=== PATIENT | female | born 1955 | race Caucasian/White ===

== ENCOUNTER 2017-10-26 06:18 | Inpatient (IN) ==
[2017-10-26] MEDS ORDERED: CeFAZolin Syr 2,000MG/20 ML 2,000 MG/20 ML SYRINGE IVPB ONE ×2 (06:37→12:30)
[2017-10-26] MEDS ORDERED: Lidocaine -MPF 1% 2 ML VIAL ONE ×2 (07:06→07:12)
--- NOTE | 2017-10-26 07:09 | Anesthesia Evaluation PreOp ---
Date of Encounter: 10/26/17 Time of Encounter: 07:07 - Past History Planned Operation: Robotic Sacrocolpopexy, Hysterectomy Cardiac History: Denies any Significant Hx Pulmonary History: Denies Any Significant HX MANAGER PAID History: Denies Any Significant HX Other Medical History: GERD, Other (depression) Anesthesia History: No Prior Anesthetic Complications, Past Anesthesia Alcohol Use: occasionally Drug use: none Medications and Allergies Calcium Carbonate/Vitamin D3 [Calcium 500 + Vit D 200 Caplet] 1 tab PO DAILY [History] Docusate Sodium [Dok] 100 mg PO DAILY PRN 10/26/17 [History] Estradiol [Estrace] 1 appl VG 2XW 10/26/17 [History] Mirabegron [Myrbetriq] 50 mg PO DAILY 10/26/17 [History] Mv-Mn/FA/Vit K/Lycop/Lut/Coq10 [Daily Multivitamin Capsule] 1 tab PO DAILY 10/26 [History] Ospemifene [Osphena] 60 mg PO DAILY 10/26/17 [History] Vilazodone HCl [Viibryd] 20 mg PO DAILY 10/26/17 [History] Vitamin E (Dl,Tocopheryl Acet) [Vitamin E] 400 unit PO DAILY 10/26/17 [History] valACYclovir [Valtrex] 500 mg PO DAILY 10/26/17 [History] 3 Allergy/AdvReac Type Severity Reaction Status Date / Time No Known Allergies Allergy Verified 10/26/17 06:42 - Meds/Allergy Pre-op Review Medications Reviewed: Yes Allergies Reviewed: Yes Beta Blockers on Current Med List: No Anesthesia Results - Labs Laboratory Tests 10/19/17 10/19/17 10:17 10:17 WBC 6.7 Hgb 12.6 Hct 39.6 Plt Count 242 Creatinine 0.85 Anesthesia Exam O2 Sat Height 1.57 m Height 1.57 m Height 1.57 m Weight 63.049 kg Weight 63.049 kg Weight 63.049 kg O2 Sat by Pulse Oximetry 98 Vital Signs Temp Pulse Resp BP Pulse Ox 97.5 F L 70 18 135/73 98 10/26/17 06:37 10/26/17 06:37 10/26/17 06:37 10/26/17 06:37 10/26/17 06:37 Height: 5'2'' Weight: 139 lbs NPO (# of Hours): 8 Pain Scale: 0 Pain Scale Used: Numeric (1 - 10) - HEENT Pupil (Motor): EOMI Mallampati: II Teeth: Normal Oral Opening: Greater than 3 - MANAGER PAID LOC: Oriented MANAGER PAID Motor: Normal RUE, Normal LUE, Normal RLE, Normal LLE, Normal Face MANAGER PAID Sensory: Normal: RUE, LUE, RLE, LLE, Face - Cardiac Rhythm: Regular Murmur: None - Pulmonary Breath Sounds: bilateral Clear Respiratory Effort: Symmetrical Anesthesia Assess/Plan ASA Score: 2 Modified [place] Scale for Level of Consciousness: Cooperative, oriented, and tranquil Anesthetic Plan: General Monitoring Plan: Standard Monitors Recovery Plan: PACU
[2017-10-26] MEDS ORDERED: Bupivacaine/EPI 1:200k 0.25%PF 10 ML VIAL INFILT ONE (07:14)
[2017-10-26] MEDS: Ringers Solution, Lactated 1,000 ML IVC SCH ×2 (07:30→17:30)
[2017-10-26] MEDS ORDERED: Albumin Human 5% 25.0 GM/500 ML VIAL ONE ×2 (07:32→13:20)
--- NOTE | 2017-10-26 07:34 | History & Physical Report ---
Date of Encounter: 10/26/17 Time of Encounter: 07:34 24 Hour HP Update - Instructions Instructions: If the History and Physical is less than 30 days old and was completed prior to A.M. admission and or procedure and has NOT been updated on calendar day of procedure please complete this update prior to performing procedure. - Update Patient reports changes in Medical Condition: No Changes in examination, assessment, or condition: No Changes in Medication: No Preop tests/diagnostics Reviewed: Yes Surgery Remains Indicated: Yes Consent for Planned Operative Procedure(s) Verified: Yes - Pre-Operative Checklist Preoperative Checklist Indicated: Yes Prophylactic Antibiotic Ordered: Yes Home Medications Include Beta Kendrick: No Beta Kendrick Taken Today (Day of Surgery): No Beta Kendrick Taken Yesterday (Day Prior to Surgery): No Is VTE Prophylaxis Indicated?: Yes
[2017-10-26] MEDS ORDERED: Ondansetron 4 MG/2 ML VIAL ONE (07:37)
[2017-10-26] MEDS ORDERED: *HR* FentaNYL (PF) 100 MCG/2 ML VIAL ONE ×2 (07:37→13:11)
[2017-10-26] MEDS ORDERED: Neostigmine Methylsulfate 3 MG/3 ML SYRINGE ONE (07:37)
[2017-10-26] MEDS ORDERED: *HR* Midazolam HCl 2 MG/2 ML VIAL ONE (07:37)
[2017-10-26] MEDS ORDERED: *HR* Rocuronium Bromide 50 MG/5 ML VIAL ONE (07:37)
[2017-10-26] MEDS ORDERED: Dexamethasone 4 MG/ML VIAL ONE (07:37)
[2017-10-26] MEDS ORDERED: *HR* Propofol 200 MG/20 ML VIAL IVP ONE ×2 (07:39→15:18)
[2017-10-26] MEDS ORDERED: Lidocaine -MPF 2% 2 ML VIAL ONE (07:40)
[2017-10-26] MEDS ORDERED: EPHEDrine 50 MG/ML VIAL ONE (07:57)
[2017-10-26] MEDS ORDERED: Lacri-Lube 3.5 GM TUBE ONE (08:01)
[2017-10-26] MEDS ORDERED: *HR* PHENYLEPHRINE 1,000 MCG/10 ML SYRINGE IVP ONE (08:19)
[2017-10-26] MEDS ORDERED: *HR* Labetalol 100 MG/20 ML MDV IVP PRN (08:31)
[2017-10-26] MEDS ORDERED: *HR* Promethazine 25 MG/ML VIAL IVP PRN (08:31)
[2017-10-26] MEDS ORDERED: *HR* OxyCODONE Immed Rel 5 MG TABLET PO PRN (08:31)
[2017-10-26] MEDS ORDERED: ceFAZolin 2,000 MG in Water for inj. (sterile) 20 ML IVP ONE (12:11)
[2017-10-26] MEDS ORDERED: Bupivacaine-MPF 0.25% 10 ML VIAL ONE (13:41)
[2017-10-26] MEDS ORDERED: Lidocaine/EPI 1:100k 1% 50 ML VIAL INFILT ONE (14:40)
[2017-10-26] MEDS ORDERED: Naloxone 0.4 MG/ML INJ IVP PRN ×2 (15:52→15:53)
[2017-10-26] MEDS ORDERED: Ondansetron 4 MG/2 ML VIAL IVP PRN (15:53)
--- NOTE | 2017-10-26 15:58 | OB/GYN Procedure Note ---
Hysterectomy - Diagnosis Date of procedure: 10/26/17 Hysterectomy pre-op: symptomatic prolapse Post-op diagnosis: other (pelvic adhesions) - Procedure Hysterectomy procedure: total laparoscopic hyst., bilateral salpingo- oophorectomy, other (Lysis of adhesions, exploratory laparotomy sacrocolpopexy, rectocele repair, cystoscopy), robotic Surgeon: Dean Vizcarra Was there an assistant professor of forestry present: Yes Cannery Worker: Josseline Sánchez Anesthesia Type: General Estimated blood loss (cc): 300 Fluids: crystalloid Specimens: right ovary, uterus, left ovary, right fallopian tube, left fallopian tube Findings: adhesions b/w bowel, omentum and anterior abdominal wall, adhesions b/w right tube and ovar and right pelvic side wall, atrophic vagina with thin mucosa, normal uterus and tubes and ovaries bilaterally. Disposition: PACU
[2017-10-26] MEDS: MORPHINE SUL Oral CONC 10 MG/0.5 ML ORAL.SYG SL PRN ×2 (16:22→16:32)
--- NOTE | 2017-10-26 16:56 | Anesthesia Evaluation Post Op ---
Date of Encounter: 10/26/17 Time of Encounter: 16:55 - Vital Signs Vital Signs: Vital Signs/O2 Sat, Most Current Temp Pulse Resp BP Pulse Ox 97.0 F L 78 16 112/54 100 10/26/17 16:20 10/26/17 16:20 10/26/17 16:20 10/26/17 16:20 10/26/17 16:20 - Lungs Lungs: Clear Ascult./Percussion - Airway Airway: Non-obstructed - Cardiovascular Regular Rate - Mental Status Mental Status: Asleep with brisk response to light stimulation - Pain Pain Scale: 5 Pain Scale used: Numeric (1 - 10) - Nausea Vomiting Nausea Vomiting: Not Present - Hydration Hydration: Ice chips, Gusman catheter - Discharge PostOp Status: Transfer Patient to floor
[2017-10-26] MEDS: *HR* HYDROmorphone 2 MG/ML SYRINGE IVP PRN ×2 (19:15→22:50)
[2017-10-27] MEDS: *HR* HYDROmorphone 2 MG/ML SYRINGE IVP PRN ×3 (03:32→08:37)
[2017-10-27 04:37] LABS: Hematocrit 27.2 % (35.3-44.9); Hemoglobin 8.5 g/dL (11.5-15.4); Immature Granulocytes % 0.3 % (0-4); Lymphocytes # 0.9 K/mcL (0.6-4.6); Lymphocytes % 10.6 %; Mean Corpuscular HGB Conc 31.3 g/dL (31.6-35.5); Mean Corpuscular Hemoglobin 32.1 pg (28.0-33.3); Mean Corpuscular Volume 102.6 fL (83.0-100.0); Mean Platelet Volume 10.1 fL (9.4-12.4); Monocytes # 0.8 K/mcL (0.0-1.3); Monocytes % 8.5 %; Neutrophils # 7.2 K/mcL (1.6-8.9); Platelet Count 157 K/mcL (140-400); Red Blood Count 2.65 M/mcL (3.82-4.97); Red Cell Distribution Width 12.5 % (11.5-14.5); Segmented Neutrophils % 80.6 %
[2017-10-27] MEDS ORDERED: Acetaminophen IV 1,000 MG/100 ML INFUS..BTL IVPB ONE (08:33)
[2017-10-27] MEDS: Ringers Solution, Lactated 1,000 ML IVC SCH ×2 (08:35→16:25)
--- NOTE | 2017-10-27 08:36 | OB/GYN Progress Note ---
Date of Encounter: 10/27/17 Time of Encounter: 08:34 - Assessment and Plan (1) Status post hysterectomy with oophorectomy Current Visit: Yes Status: Acute overall doing ok. Will cont. post op care and advance as tolerated. (2) Pelvic relaxation due to uterovaginal prolapse Current Visit: Yes Status: Acute s/p sacrocolpopexy and rectocele repair. Packing removed. (3) Acute blood loss as cause of postoperative anemia Current Visit: Yes Status: Acute Pt with significant oozing during surgery, no evidence of active bleeding at this time. VSS, relative hypotension noted but color is good and good uop. Will recheck h/h at 16:00 Subjective - Subjective Principal diagnosis: s/p laparotomy, SIDRA, supracervical hysterectomy and BSO, sacrocolpopexy, re Interval history: Overall doing well, c/o incisional pain controlled with Dilaudid. Not much appetite yet, no emesis, no flatus. Hasn't ambulated yet. Objective - Vital Signs Latest vital signs: Vital Signs Temp Pulse Pulse Resp BP Pulse Ox 10/27/17 03:30 97.5 F L 85 14 96/51 98 10/27/17 00:00 98.2 F 73 12 95/52 97 10/26/17 20:00 98.5 F 84 14 99/53 100 10/26/17 19:58 60 10/26/17 18:51 97.9 F 86 16 125/69 100 10/26/17 18:00 104 14 115/75 100 10/26/17 17:30 97.4 F L 91 12 108/70 100 10/26/17 17:00 97.0 F L 97 14 122/70 100 10/26/17 16:40 97.0 F L 78 16 117/62 100 10/26/17 16:30 78 16 111/64 100 10/26/17 16:20 97.0 F L 78 16 112/54 100 10/26/17 16:10 76 16 110/61 100 10/26/17 16:00 81 16 117/65 100 10/26/17 15:50 98.0 F 82 16 104/56 100 Intake and Output 10/26/17 10/27/17 10/27/17 23:59 07:59 15:59 Intake Total 300 / 300 Output Total 1125 / 1125 350 / 350 Balance -1125 / -1125 -50 / -50 Intake: Oral 300 / 300 Output: Catheter 1125 / 1125 350 / 350 Other: Weight 63.5 kg - I&O's I&O's: Intake & Output 10/24/17 10/25/17 10/26/17 10/27/17 23:59 23:59 23:59 23:59 Intake Total 1000 / 1000 300 / 300 Output Total 5 / 2124 350 / 350 Balance -5 / -1124 -50 / -50 Weight 63.5 kg - Exam Lungs: bilateral: normal Chest: Normal S1, Normal S2 Extremities: Present: normal Abdomen: Present: soft, other (+ BS) Incision OB: Present: dry, intact, dressed - Labs Labs: Abnormal lab results RBC 2.65 M/mcL (3.82-4.97) L 10/27/17 04:19 Hgb 8.5 g/dL (11.5-15.4) L 10/27/17 04:19 Hct 27.2 % (35.3-44.9) L 10/27/17 04:19 MCV 102.6 fL (83.0-100.0) H 10/27/17 04:19 MCHC 31.3 g/dL (31.6-35.5) L 10/27/17 04:19 Consult Discharge Plan - Plan Referrals: Sawyer Townsend MD [Primary Care Provider] -
[2017-10-27] MEDS: *HR* HYDROcodone/Acet 5/325 mg TABLET PO PRN ×2 (12:33→16:25)
[2017-10-27 16:53] LABS: Hematocrit 27.5 % (35.3-44.9); Hemoglobin 8.8 g/dL (11.5-15.4)
[2017-10-27] MEDS ORDERED: Ibuprofen 600 MG TABLET PO PRN (17:50)
[2017-10-27] MEDS ORDERED: Ketorolac 30 MG/ML VIAL IVP ONE (17:51)
[2017-10-27] MEDS ORDERED: Ketorolac 15 MG/ML VIAL IVP PRN (17:51)
[2017-10-27] MEDS: *HR* OxyCODONE/APAP 5/325 TABLET PO PRN (20:48)
[2017-10-28] MEDS: *HR* OxyCODONE/APAP 5/325 TABLET PO PRN ×4 (00:37→13:21)
[2017-10-28] MEDS: Ringers Solution, Lactated 1,000 ML IVC SCH (00:38)
[2017-10-28 11:50] VITALS: BP 121/76
--- NOTE | 2017-10-28 13:05 | Discharge Summary ---
Outpatient Proc Discharge Plan - Plan Prescriptions: OxyCODONE/APAP 5/325 [Percocet 5/325 MG] 1 each PO Q4HR PRN 7 Days #40 tablet PRN Reason: Pain Ibuprofen [Motrin] 600 mg PO Q6HR PRN #40 tab PRN Reason: post op pain Home Medications: Calcium Carbonate/Vitamin D3 [Calcium 500 + Vit D 200 Caplet] 1 tab PO DAILY [History] Docusate Sodium [Dok] 100 mg PO DAILY PRN 10/26/17 [History] Estradiol [Estrace] 1 appl VG 2XW 10/26/17 [History] Mirabegron [Myrbetriq] 50 mg PO DAILY 10/26/17 [History] Mv-Mn/FA/Vit K/Lycop/Lut/Coq10 [Daily Multivitamin Capsule] 1 tab PO DAILY 10/26 [History] Ospemifene [Osphena] 60 mg PO DAILY 10/26/17 [History] Vilazodone HCl [Viibryd] 20 mg PO DAILY 10/26/17 [History] Vitamin E (Dl,Tocopheryl Acet) [Vitamin E] 400 unit PO DAILY 10/26/17 [History] valACYclovir [Valtrex] 500 mg PO DAILY 10/26/17 [History] Ibuprofen [Motrin] 600 mg PO Q6HR PRN #40 tab 10/28/17 [Rx] OxyCODONE/APAP 5/325 [Percocet 5/325 MG] 1 each PO Q4HR PRN 7 Days #40 tablet [Rx]
--- NOTE | 2017-10-28 13:08 | Discharge Summary ---
Date of Encounter: 10/28/17 Time of Encounter: 13:10 - Discharge Diagnosis (1) Status post hysterectomy with oophorectomy Priority: Primary Status: Acute Comments: Doing well overall, still with incisonal pain but improving with Percocet and motrin. Reg diet and ambulating. Possible d/c home todasy. (2) Pelvic relaxation due to uterovaginal prolapse Priority: Primary Status: Acute (3) Acute blood loss as cause of postoperative anemia Priority: Secondary Status: Acute Comments: stable - Discharge Medications Prescriptions: OxyCODONE/APAP 5/325 [Percocet 5/325 MG] 1 each PO Q4HR PRN 7 Days #40 tablet PRN Reason: Pain Ibuprofen [Motrin] 600 mg PO Q6HR PRN #40 tab PRN Reason: post op pain Home Medications: Calcium Carbonate/Vitamin D3 [Calcium 500 + Vit D 200 Caplet] 1 tab PO DAILY [History] Docusate Sodium [Dok] 100 mg PO DAILY PRN 10/26/17 [History] Estradiol [Estrace] 1 appl VG 2XW 10/26/17 [History] Mirabegron [Myrbetriq] 50 mg PO DAILY 10/26/17 [History] Mv-Mn/FA/Vit K/Lycop/Lut/Coq10 [Daily Multivitamin Capsule] 1 tab PO DAILY 10/26 [History] Ospemifene [Osphena] 60 mg PO DAILY 10/26/17 [History] Vilazodone HCl [Viibryd] 20 mg PO DAILY 10/26/17 [History] Vitamin E (Dl,Tocopheryl Acet) [Vitamin E] 400 unit PO DAILY 10/26/17 [History] valACYclovir [Valtrex] 500 mg PO DAILY 10/26/17 [History] Ibuprofen [Motrin] 600 mg PO Q6HR PRN #40 tab 10/28/17 [Rx] OxyCODONE/APAP 5/325 [Percocet 5/325 MG] 1 each PO Q4HR PRN 7 Days #40 tablet [Rx] Allergies/Adverse Reactions: 3 Allergy/AdvReac Type Severity Reaction Status Date / Time No Known Allergies Allergy Verified 10/26/17 06:42 Data Procedures and tests throughout hospitalization: Laboratory Tests 10/26/17 10/27/17 10/27/17 13:35 04:19 16:33 WBC 8.9 RBC 2.65 L Hgb 8.5 L 8.8 L Hct 27.2 L 27.5 L MCV 102.6 H MCH 32.1 MCHC 31.3 L RDW 12.5 Plt Count 157 MPV 10.1 Immature Gran % 0.3 Seg Neutrophils % 80.6 Lymphocytes % 10.6 Monocytes % 8.5 Eosinophils % 0.0 Basophils % 0.0 Neutrophils # 7.2 Lymphocytes # 0.9 Monocytes # 0.8 Eosinophils # 0.0 Basophils # 0.0 Blood Type O POSITIVE Antibody Screen NEGATIVE Labs on day of discharge: Labs from last 24 hours 10/27/17 16:33 Hgb 8.8 L Hct 27.5 L - Impressions Doing well, taking reg diet without n/v. No flatus at this point. Fair pain control with Percocet and Motrin. Ambulating. Date of admission: 10/26/17 15:52 Primary care physician: Sawyer Townsend MD - Patient Status Disposition: Home, Self-Care Condition: Good Functional capacity at discharge: independent ambulation Overall status at discharge: patient is progressing back to baseline - Discharge Instructions Follow Up With: Dean Vizcarra MD [Partnered Physician] - Additional Instructions: f/u 1 week for staple removal. - Diet and Activity Activity: resume usual activities as tolerated Hospital Course YEAST PU[employer]ER Time Attestation: Total time spent providing and/or coordinating discharge services: Exam - Constitutional Vitals: Temp Pulse Resp BP Pulse Ox 97.8 F 115 16 121/76 98 10/28/17 10:00 10/28/17 10:00 10/28/17 10:00 10/28/17 10:00 10/28/17 10:00 General appearance IM: A&O X 3 - Respiratory Respiratory exam: Present: CTAB - Cardiovascular Cardiovascular exam IM: Present: RRR - GI/Abdominal GI/Abdominal exam IM: normal bowel sounds Incision: normal - VTE Documentation of Mechanical Device: Intermittent pneumatic compression device
== END 2017-10-28 15:10 | disposition home or self-care (01) | DRG 742 ==
LOC: SAMDAY 06:18 → 1NENUOBS 15:52
PROVIDERS: ADMIT Obstetrics & Gynecology; ATTEND Obstetrics & Gynecology